=== PATIENT | female | born 1995 | race Two or more races ===

== ENCOUNTER 2021-02-18 22:08 | Emergency (ER) | payer OTHER ==
[~2021-02-18] VITALS: Ht 170.2 cm; Wt 61.7 kg
== END 2021-02-18 23:28 | disposition home or self-care (01) ==
LOC: ER 22:08
DX: S91.022A Laceration with foreign body, left ankle, initial encounter (principal); W45.8XXA Other foreign body or object entering through skin, initial encounter; Y93.89 Activity, other specified; Y92.89 Other specified places as the place of occurrence of the external cause; Y99.8 Other external cause status